=== PATIENT | female | born 1950 | race African-American/Black ===

== ENCOUNTER 2018-08-08 14:46 | Emergency (ER) | payer OTHER, BC ==
[2018-08-08] MEDS ORDERED: ASPIRIN 81 MG CHEWABLE TABLETS PO ONE (15:02)
[2018-08-08 15:11] VITALS: BMI 24.3
[2018-08-08] MEDS ORDERED: ALBUTEROL SO4 2.5/IPRATROPIUM 0.5 INH SOL 3 ML VIAL.NEB. NEB ONE ×3 (15:12→16:10)
[2018-08-08] MEDS ORDERED: ASPIRIN 81 MG CHEWABLE TABLETS ONE (15:31)
--- NOTE | 2018-08-08 15:38 | PDOC ---
History of Present Illness - General Chief Complaint: Irregular Heart Beat Stated Complaint: SOB Time Seen by Provider: 08/08/18 14:58 History Source: Patient Exam Limitations: No Limitations - History of Present Illness Initial Comments: 64 year old female with significant past medical history of Asthma, HTN, HLD, DVT, and Multiple Myeloma presents to the ED From her PCP with the stated complaint of SOB. The patient states she feels great and does not feel like she needs to be here. She admits that she was indeed short of breath earlier today but does not believe it is significant. She does not have an albuterol inhaler and says she has not been hospitalized for her asthma in over 2 years. She states she has never needed to be intubated and was never admitted to the ICU secondary to her asthma. Her son who is at bedside states that his mother has been much more fatigued in general lately. She denies any current chest pain, SOB, difficulty breathing, recent fevers, chills, infections, headache, nausea, vomiting, diarrhea, or constipation. PCP: Dr. Guille Villarreal at [facility]: None reported Social Hx: Denies smoking, drinking, or other substance usage Allergies: Penicillins - severe, peanuts. Past History - Past Medical History Allergies/Adverse Reactions: Allergies Allergy/AdvReac Type Severity Reaction Status Date / Time peanut [Peanut] Allergy Verified 11/21/11 12:08 Penicillins Allergy Verified 12/28/11 12:31 Home Medications: Ambulatory Orders Apixaban [Eliquis] 2.5 mg PO BID 08/08/18 Atorvastatin Ca [Lipitor] 10 mg PO AM 08/08/18 Anemia: No Asthma: Yes Cancer: No Cardiac Disorders: No CVA: No COPD: No CHF: No Dementia: No Diabetes: No GI Disorders: No Disorders: No HTN: Yes Hypercholesterolemia: Yes Liver Disease: No Seizures: No Thyroid Disease: No - Suicide/Smoking/Psychosocial Hx Smoking Status: No Smoking History: Never smoked Have you smoked in the past 12 months: No Number of Cigarettes Smoked Daily: 0 Hx Alcohol Use: No Drug/Substance Use Hx: No Substance Use Type: None Hx Substance Use Treatment: No Review of Systems - Review of Systems Able to Perform ROS?: Yes Comments:: CONSTITUTIONAL: Absent: fever, no chills, no fatigue EYES: Absent: visual changes ENT: Absent: ear pain, no sore throat CARDIOVASCULAR: Absent: chest pain, no palpitations RESPIRATORY: Present: SOB, cough GI: Absent: abdominal pain, no nausea, no vomiting, no constipation, no diarrhea GENITOURINARY: Absent: dysuria, no frequency, no hematuria MUSKULOSKELETAL: Absent: back pain, no arthralgia, no myalgia SKIN: Absent: rash NEURO: Absent: headache *Physical Exam - Physical Exam General Appearance: Yes: Nourished, Appropriately Dressed. No: Apparent Distress HEENT: positive: EOMI, BECKI, Normal ENT Inspection Neck: positive: Supple. negative: Rigid, Lymphadenopathy (R), Lymphadenopathy ( L) Respiratory/Chest: positive: Respiratory Distress, Labored Respiration, Rapid RR , Decreased Breath Sounds, Wheezing. negative: Chest Tender, Lungs Clear, Normal Breath Sounds, Accessory Muscle Use, Crackles, Rales, Rhonchi, Stridor Cardiovascular: positive: Regular Rate, S1, S2. negative: Edema, JVD Vascular Pulses: Dorsalis-Pedis (R): 2+, Doralis-Pedis (L): 2+ Gastrointestinal/Abdominal: positive: Normal Bowel Sounds, Soft. negative: Distended, Guarding Rectal Exam: positive: deferred Lymphatic: negative: Adenopathy Musculoskeletal: positive: Normal Inspection. negative: CVA Tenderness Extremity: positive: Normal Capillary Refill, Normal Inspection, Normal Range of Motion Integumentary: positive: Normal Color, Dry, Warm Neurologic: positive: lab animal technician II-XII NML intact, Fully Oriented, Alert, Normal Mood/ Affect, Normal Response, Motor Strength 5/5 ED Treatment Course - LABORATORY CBC & Chemistry Diagram: 08/08/18 15:36 08/08/18 15:36 Medical Decision Making - Medical Decision Making 64 year old female with significant past medical history of Asthma, HTN, HLD, DVT, and Multiple Myeloma presents to the ED From her PCP with the stated complaint of SOB. Vitals at bedside much better than triage. DDx IBNLT: PNA, Asthma, COPD, URI, pneumothorax, ACS/[place] Plan: Labs, cxr, duonebs, EKG, oxygen, re-assess. Labs unremarkable. Patient is well appearing, has no complaints, and requests to be discharged. She has clear breath sounds bilaterally and her CXR has not acute pathological findings. Will DC patient with PCP follow up. She states she is no longer having SOB after duonebs. *DC/Admit/Observation/Transfer Diagnosis at time of Disposition: Asthma attack - Discharge Dispostion Disposition: HOME Condition at time of disposition: Improved Decision to Admit order: No - Referrals Referrals: Frederick Spence MD [Primary Care Provider] - - Patient Instructions Printed Discharge Instructions: Asthma -- Adult Additional Instructions: You came into the ER with shortness of breath and difficulty breathing. We believe you were having an asthma attack. We gave you a breathing treatment and you felt much better. It is extremely important for you to call your primary care doctor in the next 24 hours and schedule a follow up appointment. Come back to the ER immediately if your pain worsens, you become short of breath , have chest pain, or any other new or worsening concerns. Thank you for coming to the [facility] ER. We hope you feel better soon! Print Language: TRINIDADIAN - Post Discharge Activity
[2018-08-08 15:51] LABS: BASO % 0.6 % (0-2.0); EOS % 2.1 % (0-4.5); HEMATOCRIT 44.4 % (32.4-45.2); HEMOGLOBIN 14.1 GM/dL (10.7-15.3); LYMPH % 30.1 % (8-40); MCH 29.1 pg (25.7-33.7); MCHC 31.9 g/dl (32.0-36.0); MEAN CELL VOLUME 91.5 fl (80-96); MEAN PLT VOLUME 8.7 fl (7.5-11.1); MONO % 6.3 % (3.8-10.2); NEUT % 60.9 % (42.8-82.8); PLATELET COUNT 211 K/MM3 (134-434); RBC 4.85 M/mm3 (3.60-5.2); RDW 13.6 % (11.6-15.6); WHITE BLOOD COUNT 6.5 K/mm3 (4.0-10.0)
[2018-08-08 16:04] LABS: N-TERMINAL BNP 32.6 pg/ml (5-125)
[2018-08-08 16:06] LABS: ALBUMIN 3.8 g/dl (3.4-5.0); ALK PHOS 86 U/L (45-117); ANION GAP 6 MMOL/L (8-16); BILIRUBIN,TOTAL 0.4 mg/dL (0.2-1); BLOOD UREA NITROGEN 9 mg/dL (7-18); CALCIUM 8.9 mg/dL (8.5-10.1); CHLORIDE 107 mmol/L (98-107); CO2 31 mmol/L (21-32); CREATININE 0.9 mg/dL (0.55-1.3); GLUCOSE,RANDOM 90 mg/dL (74-106); MAGNESIUM 2.1 mg/dL (1.8-2.4); POTASSIUM 4.4 mmol/L (3.5-5.1); SGOT/AST 17 U/L (15-37); SGPT/ALT 17 U/L (13-61); SODIUM 144 mmol/L (136-145); TOT PROT 7.9 g/dl (6.4-8.2)
[2018-08-08] MEDS ORDERED: MAG HYDROX/AL HYDROX/SIMETH 30 ML UNIT-DOSE CUP PO ONE (16:10)
[2018-08-08] MEDS ORDERED: RANITIDINE HCL 150 MG TABLET (FP) PO ONE (16:10)
[2018-08-08] MEDS ORDERED: ALBUTEROL SO4 0.083% IH SOL 2.5 MG/3 ML VIAL.NEB. NEB ONE (16:26)
[2018-08-08] MEDS ORDERED: RANITIDINE HCL 150 MG TABLET (FP) ONE (17:24)
[2018-08-08] MEDS ORDERED: MAG HYDROX/AL HYDROX/SIMETH 30 ML UNIT-DOSE CUP ONE (17:24)
--- NOTE | 2018-08-08 17:26 | PDOC ---
Attending Attestation - Resident Resident Name: Pelon Araujo - ED Attending Attestation I have performed the following: I have examined & evaluated the patient, The case was reviewed & discussed with the resident, I agree w/resident's findings & plan - HPI HPI: 08/08/18 17:24 The patient is a 64 year old female with significant past medical history of HTN , HLD, and asthma presents to the ED From her PCP with complaint of SOB at her PCP office today. She denies symptoms now, however, does admit to difficulty breathing while in the office. She denies any current chest pain, difficulty breathing, recent fevers, chills, infections, headache, nausea, vomiting, diarrhea, or constipation. Allergies: NKA Past surgical history: AVR, left arm fistula, right chest shiley Social history: No reported alcohol, drug or cigarette use. PCP: Dr. Rodriguez - Physicial Exam PE: 08/08/18 17:24 NAD, well appearing, MMM, nl conjunctiva, anicteric; neck supple. lungs clear, breathing comfortably, RRR, abdomen soft obese, mild epigastric tenderness, no peritoneal signs.. DOLL x4, no focal neuro deficits. No peripheral edema. normal color for ethnicity, WWP. 08/08/18 17:24 - Medical Decision Making 08/08/18 17:25 I, Emmy Gupta MD, attest that this document has been prepared under my direction and personally reviewed by me in its entirety. I further attest, that it accurately reflects all work, treatment, procedures and medical decision -making performed by me. See HPI for details DDx. asthma, viral syndrome, ACS, arrhythmia, pneumonia, anemia, electrolyte/ metabolic derangements. Vital signs reviewed, wnl. no hypoxia. no fever. Prior notes reviewed, including admissions, discharges and consultations. laboratory results and imaging reviewed, basic labs and lytes wnl, reassuring. CXR_large hiatal hernia, unchanged, no acute changes. no infiltrate or consolidation. Cardiac panel_neg trop, reassuring less likely ACS EKG normal sinus rhythm, no interval abnormalities, narrow QRS, ST and T wave segments and morphology normal. ED course: comfortable, no acute respiratory distress repeat VS normal, normal SpO2. rx albuterol inhaler for her asthma control. no infection, defer abx. dispo: Pt to be discharged in stable condition. Patient and family made aware of impression and plan, return precautions discussed (including but not limited to worsening pain or symptoms), fevers, or signs of infection, chest pain, respiratory distress, inability to tolerate oral intake, dehydration, syncope, or neurologic changes). Follow up with PMD and/or specialist as recommended, follow up information provided, take medications as instructed for duration of time. continue with supportive care, avoid triggers and precipitants. All questions answered to patient's satisfaction and expressed understanding and comfort with this. 08/08/18 18:05 08/08/18 18:07 Heart Score/ECG Review - ECG Impressions Normal ECG: Yes Comment:: 08/08/18 17:25 EKG normal sinus rhythm, no interval abnormalities, narrow QRS, ST and T wave segments and morphology normal.
[2018-08-08 17:35] VITALS: PULSE 81
[2018-08-08 18:15] VITALS: BP 155/100; TEMP 98
--- NOTE | 2018-08-09 12:46 | EKG ---
Test Reason : Blood Pressure : / mmHG Vent. Rate : 081 BPM Atrial Rate : 081 BPM P-R Int : 130 ms QRS Dur : 068 ms QT Int : 356 ms P-R-T Axes : 047 030 050 degrees QTc Int : 413 ms NORMAL SINUS RHYTHM NORMAL ECG WHEN COMPARED WITH ECG OF 04-SEP-2015 11:43, NONSPECIFIC T WAVE ABNORMALITY NO LONGER EVIDENT IN INFERIOR LEADS Confirmed by IFRAH DORANTES MD ([id number]) on 08/09/2018 12:46:17 PM Referred By: Confirmed By:IFRAH DORANTES MD
== END 2018-08-08 18:15 | disposition home or self-care (01) ==
LOC: JER 14:46
PROC: 3E0F7GC Introduction of Other Therapeutic Substance into Respiratory Tract, Via Natural or Artificial Opening (ICD-10-PCS; principal; 2018-08-08)
PROC: 3E0F7GC Introduction of Other Therapeutic Substance into Respiratory Tract, Via Natural or Artificial Opening (ICD-10-PCS; 2018-08-08)
DX: J45.901 Unspecified asthma with (acute) exacerbation (principal); I10 Essential (primary) hypertension; E78.5 Hyperlipidemia, unspecified; Z86.718 Personal history of other venous thrombosis and embolism; Z79.01 Long term (current) use of anticoagulants; C90.00 Multiple myeloma not having achieved remission
CPT/HCPCS: 71046-TC-FY; 80053; 83735; 83880; 84484; 85025; 93005; 93010; 99283-25

== ENCOUNTER 2020-04-09 12:53 | Emergency (ER) | payer BC, OTHER ==
[2020-04-09 13:02] VITALS: BP 156/100; PULSE 90; TEMP 98.2; BMI 28.8
--- NOTE | 2020-04-09 13:54 | PDOC ---
History of Present Illness - General Chief Complaint: Pain Stated Complaint: ABD PAIN Time Seen by Provider: 04/09/20 13:41 - History of Present Illness Initial Comments: Neva Rico is a 69yo woman with a PMH of HLD, DVT 5yrs ago on Eliquis who presents with one week of right lower abdominal pain. She states that the pain is also present in the left lower back. She saw her PMD last week on 04/03 and was directed to proceed directly to the ED for further evaluation; however, she said that she was unable to come until today. The pain has not worsened throughout the week, and she denies any associated symptoms including fever/chills, nausea, vomiting, change in bowel habits, dysuria, hematuria, frequency, upper back pain, PO intolerance, vaginal bleeding, vaginal discharge, SOB, chest pain, headache, sore throat, or other symptoms. She denies recent travel or sick contacts. She has never had surgery and denies ever being told that she had any bowel or ovarian pathology. She took acetaminophen one day last week without i mprovement so has not taken any additional medication. She came to the ED today only because she was told to do so by her PMD. Past History - Medical History Allergies/Adverse Reactions: Allergies Allergy/AdvReac Type Severity Reaction Status Date / Time peanut [Peanut] Allergy Verified 04/09/20 13:02 Penicillins Allergy Verified 04/09/20 13:02 Home Medications: Ambulatory Orders Apixaban [Eliquis] 2.5 mg PO BID 08/08/18 Atorvastatin Ca [Lipitor] 10 mg PO AM 08/08/18 Anemia: No Asthma: Yes Cancer: No Cardiac Disorders: No CVA: No COPD: No CHF: No DVT: Yes (L LEG) Dementia: No Diabetes: No GI Disorders: No Disorders: No HTN: Yes Hypercholesterolemia: Yes Liver Disease: No Seizures: No Thyroid Disease: No - Reproductive History Is Patient Now?: No - Psycho-Social/Smoking History Smoking Status: No Smoking History: Never smoked Have you smoked in the past 12 months: No Number of Cigarettes Smoked Daily: 0 Information on smoking cessation initiated: No - Substance Abuse Hx (Audit-C & DAST Scrn) How often the patient has a drink containing alcohol: Never Score: In Men: 4 or > Positive; In Women: 3 or > Positive: 0 Screen Result (Pos requires Nsg. Audit-10AR): Negative In the last yr the pt used illegal drug/Rx for NonMed reason: No Score: Yes response is considered Positive: 0 Screen Result (Positive result requires Nsg. DAST-10): Negative Review of Systems - Review of Systems Comments:: General: No fevers, no chills, no weight or appetite change, no malaise HEENT: No changes in vision, no changes in hearing, no congestion, no sore throat CV: No chest pain, no palpitations, no LE edema Pulm: No SOB, no cough, no wheezing GI: No nausea or vomiting, no change in bowel habits, no melena. +abd pain, see HPI : No frequency, no urgency, no dysuria Musc: No back pain, no joint swelling, no recent injury Skin: No rash, no lesions, no erythema Endo: No excessive thirst, no heat/cold intolerance Heme: No unusual bruising or bleeding, no swollen glands Neuro: No syncope, no numbness/tingling, no focal weakness Vasc: No claudication Psych: No recent change in mood, no SI or HI *Physical Exam - Vital Signs Last Vital Signs Temp Pulse Resp BP Pulse Ox 98.2 F 90 19 156/100 97 04/09/20 12:59 04/09/20 12:59 04/09/20 12:59 04/09/20 12:59 04/09/20 12:59 - Physical Exam General: Comfortable, no acute distress HEENT: Atraumatic, PERRL, EOMI, MMM, voice normal, normal neck ROM Cards: RRR, no murmur appreciated Pulm: Comfortable on room air, clear to auscultation bilaterally Abd: Soft, nondistended. Mild TTP in LLQ, no peritoneal signs Ext: Atraumatic. No LE edema. ROM intact. WWP Skin: Normal color, no rashes or lesions Neuro: A&Ox3, CN grossly intact, normal speech, motor/sensory grossly intact and symmetric Psych: Mood appropriate to situation ED Treatment Course - LABORATORY CBC & Chemistry Diagram: 04/09/20 14:15 04/09/20 14:15 Medical Decision Making - Medical Decision Making 04/09/20 13:53 Neva Rico is a 69yo woman with a PMH of HLD, DVT 5yrs ago on Eliquis who presents with one week of right lower abdominal pain without associated symptoms. She saw her PMD last week and was directed to come to the ED but was unable to come until today. - Possible kidney stone, UTI, ovarian torsion. Less likely appendicitis given no fever, vomiting, worsening pain, or other symptoms. Less likely diverticulitis given location - CTAP - CBC, CMP, UA, UCx - Acetaminophen 04/09/20 16:01 - CT w/ ovarian mass c/w dermoid cyst - Labs unremarkable - Need urine to be sent - Most likely will d/c home to follow up with her PMD 04/09/20 17:30 - UA negative - Will d/c home. Advised to follow up with gynecology for further evaluation of the dermoid ovarian cyst. Discussed with Dr Jamil Grant PGY3 Discharge - Discharge Information Problems reviewed: Yes Clinical Impression/Diagnosis: Right lower quadrant abdominal pain Condition: Stable Disposition: HOME - Admission No - Follow up/Referral Referrals: Luz Marina Quiroga MD [Primary Care Provider] - Ash Floyd MD [Staff Physician] - - Patient Discharge Instructions Patient Printed Discharge Instructions: DI for Abdominal Pain-Adult Additional Instructions: Discharge Instructions: You were seen in the emergency department for right lower abdominal pain. Your blood tests did not show any concerning abnormalities. Your CT scan showed a cyst on the right ovary measuring about 5cm. You will need to follow up with a customer greeter for further evaluation of this cyst. Home Care and Follow Up: - You may use over the counter medications as needed for pain at home. 650- 1000mg acetaminophen (Tylenol) or 600mg ibuprofen (Motrin or Advil) can be used every 6-8 hours. If needed for continued pain, these medications may be alternated every 3-4 hours. For example, if you take ibuprofen at 9am, you may take acetaminophen at noon, ibuprofen at 3pm, etc. - Try using a heating pad for additional pain control. - Do not stop moving around. As much as you can tolerate, continue to do light exercise and stretching exercises. Increase your activity level as much as you can tolerate daily. - See a customer greeter within 1-2 weeks for evaluation of the right ovarian cyst seen on CT scan. If you need a customer greeter, you have been referred to Dr Floyd. - Call your regular doctor if your abdominal pain does not improve within a few days - Seek immediate medical care if you have significant worsening of your symptoms, you stop having bowel movements, you are unable to eat, you start to have nausea or vomiting, you develop fever, or you have any other medical emergency. - Post Discharge Activity
[2020-04-09 14:55] LABS: BASO % 0.4 % (0-2.0); EOS % 2.5 % (0-4.5); HEMATOCRIT 43.2 % (32.4-45.2); HEMOGLOBIN 13.9 GM/dL (10.7-15.3); LYMPH % 37.6 % (8-40); MCH 29.7 pg (25.7-33.7); MCHC 32.2 g/dl (32.0-36.0); MEAN CELL VOLUME 92.3 fl (80-96); MEAN PLT VOLUME 8.7 fl (7.5-11.1); MONO % 9.1 % (3.8-10.2); NEUT % 50.4 % (42.8-82.8); PLATELET COUNT 198 K/MM3 (134-434); RBC 4.68 M/mm3 (3.60-5.2); RDW 14.4 % (11.6-15.6); WHITE BLOOD COUNT 5.9 K/mm3 (4.0-10.0)
[2020-04-09] MEDS ORDERED: ACETAMINOPHEN 1000 MG/100 ML VIAL (NON FORMULARY) IVPB ONE (14:57)
[2020-04-09] MEDS ORDERED: ACETAMINOPHEN INJECTION 100 ML IVPB ONE (15:03)
[2020-04-09 15:23] LABS: ALBUMIN 3.8 g/dl (3.4-5.0); BILIRUBIN,TOTAL 0.4 mg/dL (0.2-1); BLOOD UREA NITROGEN 9.2 mg/dL (7-18); CALCIUM 9.3 mg/dL (8.5-10.1); POTASSIUM 4.2 mmol/L (3.5-5.1)
--- NOTE | 2020-04-09 16:13 | PDOC ---
Documentation entered by Zackary Tyler SCRIBE, acting as scribe for Elena Negron MD. Elena Negron MD: This documentation has been prepared by the Nayeli ríos Xhesika, SCRIBE, under my direction and personally reviewed by me in its entirety. I confirm that the documentation accurately reflects all work, treatment, procedures, and medical decision making performed by me. Attending Attestation - Resident Resident Name: RudyMagi - ED Attending Attestation I have performed the following: I have examined & evaluated the patient, The case was reviewed & discussed with the resident, I agree w/resident's findings & plan, Exceptions are as noted - HPI HPI: 04/09/20 14:01 The patient is a 69 year old female with significant past medical history of HTN, HLD, and DVT (5yrs ago) on eliquis who presents to the ED for RLQ abdominal pain radiating to her R lower back x1week. Pt states she saw her PCP on 04/03 and was advised to come to the ED for further evaluation. Pt states she took Tylenol one day without any improvement of symptoms. Pt states she has been urinating normally and having normal BM. She denies any current chest pain, difficulty breathing, recent fevers, chills, headache, nausea, vomiting, diarrhea, or constipation. Allergies: Penicillins, peanuts Past surgical history: AVR, left arm fistula, right chest shiley PCP: Dr. Rodriguez - Physicial Exam PE: 04/09/20 16:04 General: well appearing Abdomen: obese limiting exam, trace RLQ ttp but distractable, no rebound, no guarding, no masses Back: no CVA tenderness - Medical Decision Making 04/09/20 16:11 69 yo F with RLQ pain, minimal tenderness to palpation, possible kidney stone vs. UTI/pyelo vs. much lower suspicion for appy. Doubt torsion as patient with symptoms x1 week and very comfortable appearing and no n/v. Plan: -labs -urine -CT a/p non-con -pain control as needed -reassess This clinical encounter is taking place during a federal and state health care emergency attributable to the novel [place] Virus pandemic. The [employer] of the Department of Health and Human Services has declared, pursuant to the Public Health Service Act 319F-3 (42 U.S.C. 247d-6d), that a covered persons activities related to medical countermeasures against COVID-19 will be immune from liability under Federal and State law. Discharge - Discharge Information Problems reviewed: Yes Clinical Impression/Diagnosis: Right lower quadrant abdominal pain Condition: Stable Disposition: HOME - Follow up/Referral Referrals: Luz Marina Quiroga MD [Primary Care Provider] - Ash Floyd MD [Staff Physician] - - Patient Discharge Instructions Patient Printed Discharge Instructions: DI for Abdominal Pain-Adult Additional Instructions: Discharge Instructions: You were seen in the emergency department for right lower abdominal pain. Your blood tests did not show any concerning abnormalities. Your CT scan showed a cyst on the right ovary measuring about 5cm. You will need to follow up with a rug sample beveler for further evaluation of this cyst. Home Care and Follow Up: - You may use over the counter medications as needed for pain at home. 650- 1000mg acetaminophen (Tylenol) or 600mg ibuprofen (Motrin or Advil) can be used every 6-8 hours. If needed for continued pain, these medications may be alternated every 3-4 hours. For example, if you take ibuprofen at 9am, you may take acetaminophen at noon, ibuprofen at 3pm, etc. - Try using a heating pad for additional pain control. - Do not stop moving around. As much as you can tolerate, continue to do light exercise and stretching exercises. Increase your activity level as much as you can tolerate daily. - See a rug sample beveler within 1-2 weeks for evaluation of the right ovarian cyst seen on CT scan. If you need a rug sample beveler, you have been referred to Dr Floyd. - Call your regular doctor if your abdominal pain does not improve within a few days - Seek immediate medical care if you have significant worsening of your symptoms, you stop having bowel movements, you are unable to eat, you start to have nausea or vomiting, you develop fever, or you have any other medical emergency. - Post Discharge Activity
[2020-04-09 17:18] LABS: URINE APPEARANCE CLEAR; URINE BILIRUBIN NEGATIVE (NEGATIVE); URINE COLOR YELLOW; URINE GLUCOSE (UA) NEGATIVE (NEGATIVE); URINE KETONE NEGATIVE (NEGATIVE); URINE LEUK ESTERASE NEGATIVE (NEGATIVE); URINE NITRITE NEGATIVE (NEGATIVE); URINE PROTEIN NEGATIVE (NEGATIVE); URINE UROBILINOGEN 0.2 mg/dL (0.2-1.0)
== END 2020-04-09 17:44 | disposition home or self-care (01) ==
LOC: JER 12:53
PROC: 3E0333Z Introduction of Anti-inflammatory into Peripheral Vein, Percutaneous Approach (ICD-10-PCS; principal; 2020-04-09)
DX: R10.31 Right lower quadrant pain (principal)
CPT/HCPCS: 36415; 74176-TC; 80053; 81003; 85025; 87086; 99284-25; J0131